=== PATIENT | female | born 1985 | race Two or more races ===

== ENCOUNTER 2024-11-20 19:10 | Emergency (ER) | payer BC, MEDICAID, SELFPAY ==
[2024-11-20 19:10] VITALS: BMI 24.7
[2024-11-20 19:52] VITALS: BP 106/73; PULSE 96; RESP 15; TEMP 37.5; O2SAT 100
--- NOTE | 2024-11-20 19:57 | XR_ITS ---
Examination: CT abdomen with intravenous contrast CT pelvis with intravenous contrast 2-D coronal reconstructions 2-D sagittal reconstructions Date and time of exam:November 20, 2024, 10 0 2:00 PM, comparison August 29, 2008 INDICATIONS: Right lower abdominal pain nausea vomiting diarrhea beginning 2 days ago. CTDI: vol (mGy) 3.37 DLP: (mGycm) 6047 Technique: Multiple axial sections of the abdomen and pelvis have been obtained. 64 slice high-resolution scanner used. 3 mm axial sections have been obtained, post intravenous injection 60 cc [id number] 2-D sagittal, coronal reconstructions obtained. Low dose protocols were performed. One or more of the following dose reduction techniques were used; automated exposure control, adjustment of the mA and/or KV according to patient size, use of iterative reconstruction technique. Findings: No focal liver or splenic lesions Absent gallbladder No pancreatic or adrenal mass No renal or ureteral calculi, no hydronephrosis No pericecal inflammatory change No bowel obstruction Anteverted uterus Complex thick-walled right ovarian cyst, 20 mm, axial image 177 No free fluid in the pelvis Bladder intact Osseous structures intact IMPRESSION: No renal or ureteral calculi, no hydronephrosis No CT findings of appendicitis or bowel obstruction 20 mm complex thick-walled right ovarian cyst, please see the pelvic sonogram report today
--- NOTE | 2024-11-20 19:57 | XR_ITS ---
Examination: Transvaginal ultrasound of the pelvis, complete Technique: Transvaginal sonographic images pelvis performed using castillo scale imaging Exam date and time: November 20, 20244 hours INDICATIONS: Right-sided pelvic pain beginning 2 days ago FINDINGS: Uterus 9.6 cm endometrial stripe 1.4 cm No uterine mass or intrauterine gestation Right ovary 4.0 cm arterial flow, cyst with internal echoes 17 x 17 x 17 mm Left ovary 3.2 cm arterial flow IMPRESSION: Complex cyst with internal echoes, 1.7 x 1.7 x 1.7 cm, differential would include hemorrhagic cyst, endometrioma, cystic ovarian tumor not excluded Recommend elective MRI pelvis follow-up pre and postcontrast.
--- NOTE | 2024-11-20 19:58 | PD.EDRME ---
Rapid Medical Screening Exam [facility] Arrival date/time: 11/20/24 19:10 39F with history of cholecystectomy, gastric bypass, hernia repair, and tubal ligation presents to ED with several days of RLQ, N/V, and non-bloody diarrhea. Patient denies dysuria/hematuria. Chief Complaint: Abdominal Pain Vital signs: Vital Signs Temperature 99.5 F 11/20/24 19:52 Pulse Rate 96 11/20/24 19:52 Respiratory Rate 15 11/20/24 19:52 Blood Pressure 106/73 11/20/24 19:52 Pulse Oximetry (%) 100 11/20/24 19:52 Oxygen Delivery Method Room Air 11/20/24 19:52
[2024-11-20 20:39] LABS: Lactate (Lactic Acid) 0.8 mMol/L (0.4-2.0)
[2024-11-20 20:40] LABS: Basophils # (Auto) 0.0 Thou/mm3 (0.0-0.2); Basophils % (Auto) 0 % (0-2.5); Eosinophils # (Auto) 0.2 Thou/mm3 (0.0-0.5); Eosinophils % (Auto) 2 % (0-10); Hematocrit 38.8 % (36.0-46.0); Hemoglobin 12.5 g/dL (12.0-16.0); Immature Granulocytes Auto 0.01 Thou/mm3 (0.00-0.00); Lymphocytes # (Auto) 3.3 Thou/mm3 (1.0-4.8); Lymphocytes % (Auto) 44 % (10-50); Mean Corpuscular HGB Conc 32.2 g/dl (31.0-37.0); Mean Corpuscular Hemoglobin 27.8 pg (25.0-35.0); Mean Corpuscular Volume 86 fL (80-100); Monocytes # (Auto) 0.6 Thou/mm3 (0.0-0.8); Monocytes % (Auto) 8 % (0-12); Neutrophils # (Auto) 3.4 Thou/mm3 (1.8-7.7); Neutrophils % (Auto) 45 % (37-80); Nucleated Red Blood Cell # 0.00 Thou/mm3 (0.00-0.00); Nucleated Red Blood Cell % 0 /100 WBC (0); Platelet Count 255 Thou/mm3 (140-440); RDW Standard Deviation 41.9 fL (36.4-46.3); Red Blood Count 4.50 Miln/mm3 (4.00-5.20); White Blood Count 7.6 Thou/mm3 (3.6-11.0)
[2024-11-20 21:02] LABS: Alanine Aminotransferase 14 U/L (10-49); Albumin, Serum 4.4 gm/dL (3.5-5.0); Albumin/Globulin Ratio 1.5 (1.2-2.2); Alkaline Phosphatase 65 U/L (46-116); Anion Gap 8 (7-16); Aspartate Amino Transferase 18 U/L (0-34); BUN/Creatinine Ratio 15 Ratio (12-20); Bilirubin,Total 0.4 mg/dL (0.3-1.2); Blood Urea Nitrogen 9 mg/dL (9-23); Calcium 9.4 mg/dL (8.3-10.6); Calcium (Corrected) 9.4 mg/dL (8.5-10.1); Carbon Dioxide 26.9 mMol/L (20.0-31.0); Chloride 105 mMol/L (98-107); Creatinine (Component) 0.6 mg/dL (0.6-1.3); Estimated Creatinine Clearance 105.3 mL/min (>60); Globulin 2.9 gm/dL (2.3-3.5); Glucose 87 mg/dL (74-106); Osmolality,Calculated 277 (275-295); Potassium 4.0 mMol/L (3.4-5.1); Sodium 140 mMol/L (136-145); Total Protein 7.3 gm/dL (5.7-8.2); eGFR > 60 See Note
[2024-11-20 21:03] LABS: Collection Type, Urine Clean Catch
[2024-11-20 21:13] LABS: Lipase 38 U/L (12-53); Procalcitonin < 0.04 ng/ml (0.0-0.49)
[2024-11-20 21:19] LABS: Amphetamine/Methamp Scrn,U Negative (Negative); Barbiturate Screen,Urine Negative (Negative); Benzodiazepines Screen,Urine Negative (Negative); Benzoylecgonine Screen, Ur Negative (Negative); Fentanyl Screen,Urine Negative (Negative); Opiate Screen,Urine Negative (Negative); THC Screen,Urine Negative (Negative)
[2024-11-20 21:42] LABS: Bilirubin,Urine Negative (Negative); Blood,Urine Negative (Negative); Clarity,Urine Clear (Clear/Hazy); Color,Urine Yellow (Lt Yel-Yel); Culture Indicated,Urine Not Indicated; Glucose, Urine Negative (Negative); Ketones,Urine Negative (Negative); Leukocyte Esterase,Urine Negative (Negative); Nitrite,Urine Negative (Negative); PH,Urine 6.0 (5.0-7.0); Protein,Urine Trace (Neg - Trace); RBC,Urine 4 /hpf (0-3); Specific Gravity,Urine 1.035 (1.001-1.035); Squamous Epithelial Cell,Urine 9 /hpf (0-5); Urobilinogen,Urine 2.0 mg/dL (0.0-1.0); WBC,Urine 2 /hpf (0-5)
--- NOTE | 2024-11-20 23:09 | PD.EDABDPN ---
ED Abdominal Pain RME/HPI General Chief Complaint: Abdominal Pain Stated complaint: RLQ PAIN, N/V/DIARRHEA X 2DAYS Time seen by provider: 11/20/24 23:09 Arrival date/time: 11/20/24 19:10 39F with history of cholecystectomy, gastric bypass, hernia repair, and tubal ligation presents to ED with several days of RLQ, N/V, and non-bloody diarrhea. Patient denies dysuria/hematuria. Limitations: no limitations RME / HPI RME / HPI narrative: 11/20/24 19:10 39F with history of cholecystectomy, gastric bypass, hernia repair, and tubal ligation presents to ED with several days of RLQ, N/V, and non-bloody diarrhea. Patient denies dysuria/hematuria. Related Data Home Medications ?Medication ?Instructions ?Recorded ?Confirmed albuterol sulfate 90 mcg/actuation 1 puff inhalation Q6H PRN 02/06/19 02/06/19 aerosol inhaler Respiratory Distress loratadine 10 mg capsule 10 mg PO QDAY 02/06/19 02/06/19 Previous Rx's ?Medication ?Instructions ?Recorded acetaminophen 500 mg capsule 1,000 mg (2 x 500 mg) PO Q8HR PRN 02/06/19 pain #60 caps acetaminophen 500 mg capsule 1,000 mg (2 x 500 mg) PO Q8HR PRN 09/03/21 pain #60 caps ibuprofen 800 mg tablet 800 mg PO TID PRN pain #30 tabs 09/03/21 promethazine-DM 6.25 mg-15 mg/5 mL 5 ml PO Q6H PRN cough #473 mL 09/03/21 oral syrup ondansetron 4 mg disintegrating 4 mg PO Q8H PRN nausea and 04/26/23 tablet vomiting #15 tabs Allergies Allergy/AdvReac Type Severity Reaction Status Date / Time No Known Allergies Allergy Verified 04/26/23 09:26 Review of Systems Review of Systems Systems Reviewed: All systems reviewed, normal except as documented Constitutional Constitutional: Reports system reviewed and no additional complaints, except as documented, Denies fever(s) and Denies headache(s) ENT Ears, Nose, Mouth, and Throat: Denies disequilibrium and Denies headache(s) Cardiovascular Cardiovascular: Reports system reviewed and no additional complaints, except as documented, Denies chest pain and Denies dyspnea Respiratory Respiratory: Reports system reviewed and no additional complaints, except as documented, Denies cough and Denies dyspnea Gastrointestinal Gastrointestinal: Reports system reviewed and no additional complaints, except as documented, Reports as per HPI, Denies abdominal pain, Reports nausea and Reports vomiting Genitourinary Genitourinary: Reports as per HPI and Reports pelvic pain Neurologic Neurologic: Reports system reviewed and no additional complaints, except as documented, Denies confusion, Denies disequilibrium and Denies headache(s) Psychiatric Psychiatric: Denies confusion Past Medical History Past Medical History NEUROLOGIC: Negative Neurological Disorders or Seizures CARDIAC: Negative Cardiac Disorders or Congestive Heart Failure RESPIRATORY: Negative Chronic Obstructive Pulmonary Disease (COPD) or Asthma GASTROINTESTINAL: Positive Gall Bladder Disease; Negative Gastrointestinal Disorders, Hepatitis, Colorectal Cancer or Gastroesophageal Reflux Disease GENITOURINARY: Negative Genitourinary Disorders, Renal Disease or Prostate Cancer REPRODUCTIVE: Positive Previous Pregnancies; Negative Breast Cancer or Testicular Cancer MUSCULOSKELETAL: Negative Musculoskeletal Disorders, Bone Cancer or Carpal Tunnel Syndrome ENDOCRINE: Negative Endocrine Disorders, Diabetes Mellitus Type 1 or Diabetes Mellitus Type 2 HEMATOLOGIC: Negative Blood Disorders or Sickle Cell Disease PSYCHO/SOCIAL: Positive Anxiety OTHER HISTORY: Negative Hospitalization, Autoimmune Disease, Down Syndrome, Developmental Delay, Shingles, Falls, Blood Transfusions, Blood Transfusion Reaction, Anesthesia Reactions, Organ Transplant, Chemotherapy, Radiation Therapy, Hyperbaric Therapy, MRSA, VRSA, Vancomycin-Resistant Enterococci, Human Immunodeficiency Virus (HIV), Chicken Pox, Measles, Mumps, Rubella (English Measles), Pertussis, Clostridium Difficile, Breast Cancer, Cervical Cancer, Colorectal Cancer, Lung Cancer, Ovarian Cancer, Prostate Cancer or Testicular Cancer Family History FAMILY HISTORY: Negative Family Psychiatric Problems, Family Respiratory Disorders, Family Cardiac Disorders, Family Gastrointestinal Problems, Family Cancer, Family Surgery or Family Anesthesia Reaction Surgical History SURGICAL: Negative Nephrectomy, Transurethral Resection, Joint Replacement, Amputation, Open Reduction Internal Fixation, Arthroscopy, Neurologic Surgery, Brain Shunt, Mastectomy, Lumpectomy, Hysterectomy, Section, Vasectomy or Organ Transplant Social History SMOKING STATUS: Never smoker ED Exam General Limitations: Present no limitations General appearance: Present alert and in no apparent distress Head Head exam: Present atraumatic Eye Eye exam: Present normal appearance, PERRL and EOMI ENT ENT exam: Present normal exam, normal oropharynx and mucous membranes moist Neck Neck exam: Present normal inspection, full ROM and trachea midline Chest Chest inspection: Present normal inspection and symmetric chest wall rise Respiratory Respiratory exam: Present normal lung sounds bilaterally Cardiovascular Cardiovascular exam: Present regular rate, normal rhythm and normal heart sounds Abdominal Exam Abdominal exam: Present soft and normal bowel sounds Abdominal tenderness: Present RLQ and mild Extremities Exam Extremities exam: Present normal inspection and full ROM Back Exam Back exam: Present normal inspection and full ROM Neurological Exam Neurological exam: Present alert, oriented X3 and CN II-XII intact Psychiatric Psychiatric exam: Present normal affect and normal mood Skin Skin exam: Present warm, dry, intact and normal color Course Quality Measures none Orders Category Date Time Status CT Screening NOW Care 11/20/24 19:58 Completed Insert IV NOW Care 11/20/24 19:[address] abdomen pelvis w con Stat Exams 11/20/24 19:57 Completed US transvaginal Stat Exams 11/20/24 19:57 Completed CBC Stat Lab 11/20/24 20:28 Completed CMP [Comprehensive Metabolic Panel] Stat Lab 11/20/24 20:28 Completed Drug Screen,Urine Stat Lab 11/20/24 20:42 Completed Lactate (Lactic Acid) Stat Lab 11/20/24 20:28 Completed Lipase Stat Lab 11/20/24 20:28 Completed Procalcitonin Stat Lab 11/20/24 20:28 Completed Urinalysis, C/S if Indicated Stat Lab 11/20/24 20:42 Completed Vital Signs Vital signs: Vital Signs Temperature 99.5 F 11/20/24 19:52 Pulse Rate 96 11/20/24 19:52 Respiratory Rate 15 11/20/24 19:52 Blood Pressure 106/73 11/20/24 19:52 Pulse Oximetry (%) 100 11/20/24 19:52 Oxygen Delivery Method Room Air 11/20/24 19:52 O2 at 100% on RA and WNLs Abdominal Pain MDM MDM Narrative MDM Narrative:: 39F with history of cholecystectomy, gastric bypass, hernia repair, and tubal ligation presents to ED with several days of RLQ, N/V, and non-bloody diarrhea. Patient denies dysuria/hematuria. Physical exam reveals mild RLQ/pelvic tenderness. Patient is afebrile, calm, and alert. CT reveals ovarian cyst. US reveals complex ovarian cyst w/ possible differential of cancer. No leukocytosis. Procal/lactate normal. CMP unremarkable. UA contaminated, but no gross UTI. Patient will come back during day time for MRI, likely on Thursday, since she has some work training tomorrow. Patient declines pain meds. Patient data External records reviewed:: [facility] previous records Clinical information provided by:: patient Social determinants that could affect healthcare access:: none Patient has the following chronic illnesses:: cholecystectomy, gastric bypass, hernia repair, and tubal ligation How is presenting disease/condition affected by chronic disease/condition?: uneffected by Evaluation data The following diagnostics were reviewed and interpreted by me:: lab results and radiology exam(s) Lab and/or radiology exams considered but not ordered:: ordered Interpretation Summary: above Medications / Prescriptions Medications or Prescriptions considered but not ordered:: not ordered Medication administrations:: n/a Consultations Consultation(s) initiated? (list below): No Diagnosis Differential diagnosis abdominal pain: abdominal pain, acute appendicitis, calculus of kidney, constipation, diverticulitis, endometriosis, gastroenteritis, pancreatitis, small bowel obstruction and other (ovarian mass) Most likely diagnosis given after review of the tests above:: ovarian mass Admission Indicated Admission indicated?: not indicated Admission Request Was there a request for admission?: No Disposition Plan Disposition Plan: Discharge Discharge Attestation Discharge Attestation: The patient and all family members were given an opportunity to ask questions and understood the discharge instructions. Discharge instructions specifically effects, indications for sooner follow up or return to the emergency department, and the expected course of current diagnosis. Patient condition: Stable Discharge Plan Plan Patient Disposition: HOME (Self Care) Discharge Disposition comment: Stable Prescriptions/Referrals Prescriptions/Med Rec: No Action ibuprofen 800 mg tablet 800 mg PO TID PRN (Reason: pain) Qty: 30 0RF acetaminophen 500 mg capsule 1,000 mg PO Q8HR PRN (Reason: pain) Qty: 60 0RF promethazine-DM 6.25-15 mg/5 mL syrup 5 ml PO Q6H PRN (Reason: cough) Qty: 473 0RF albuterol sulfate 90 mcg/actuation Hfa Aerosol Inhaler 1 puff INHALATION Q6H PRN (Reason: Respiratory Distress) loratadine 10 mg Capsule 10 mg PO QDAY acetaminophen 500 mg capsule 1,000 mg PO Q8HR PRN (Reason: pain) Qty: 60 0RF ondansetron 4 mg tablet,disintegrating 4 mg PO Q8H PRN (Reason: nausea and vomiting) Qty: 15 0RF Referrals: Alcon Smiley [Primary Care Provider] - In 1 week Problem List Clinical Impression: Ovarian mass Patient/Caregiver Discharge Instructions Additional Instructions: Please follow-up with PCP/BGYN within 24-48 hours and return immediately if symptoms worsen. Return in AM time for MRI. 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 Cotton
[2024-11-20 23:32] VITALS: BP 112/72; PULSE 72; RESP 16; TEMP 36.7; O2SAT 98
== END 2024-11-20 23:39 | disposition home or self-care (01) ==
PROVIDERS: Physician Assistant; Emergency Provider Emergency Medicine; PCP Family Medicine
DX: N83.9 Noninflammatory disorder of ovary, fallopian tube and broad ligament, unspecified (principal); N83.291 Other ovarian cyst, right side; R19.7 Diarrhea, unspecified
CPT/HCPCS: 36415; 74177; 76830; 80053; 80307; 81001; 83605; 83690; 84145; 85025; 99284; A4649; Q9967

== ENCOUNTER 2024-11-26 08:05 | Emergency (ER) | payer BC, MEDICAID, SELFPAY ==
--- NOTE | 2024-11-26 | XR_ITS ---
Examination: MRI pelvis with intravenous contrast. MRI pelvis without intravenous contrast. Date and time of exam: November 26, 2024 0908 hrs. Indications: Worsening pelvic abdominal pain beginning 2 months ago, 20 mm thick-walled right ovarian cyst on pelvic sonogram report today Technique: Multiple axial, sagittal and coronal sections of the pelvis obtained. Transverse images, TR 6020, TE 107. T1 weighted transverse images, TR 582, TE 9.5. T2-weighted sagittal images, TR 4000, TE 105. T2-weighted sagittal images, TR 4000, TE 5. Coronal images, TR 4210, TE 107. Axial and coronal images are obtained post 12 cc intravenous injection, gadolinium. Findings: Uterus 9.5 x 3.2 x 3.5 cm. Endometrial stripe 15 mm. No enhancing uterine mass. Benign pelvic cyst Right ovary 3.8 cm with multiple cysts, the largest 17 mm without enhancement on the postcontrast images Left ovary 3.2 cm follicular cysts, the largest 8 mm Impression: Negative for uterine mass. 17 mm right mammogram probable hemorrhagic cyst, no solid enhancing ovarian tumor noted Recommend 6 month right pelvic sonogram follow-up
[2024-11-26 08:06] VITALS: BMI 26.2
[2024-11-26 08:19] VITALS: BP 107/72; PULSE 70; RESP 18; TEMP 36.6; O2SAT 99
--- NOTE | 2024-11-26 08:27 | PD.EDRME ---
Rapid Medical Screening Exam [facility] Arrival date/time: 11/26/24 08:05 39-year-old female with no known medical history presents to the emergency room with a chief complaint of right lower quadrant abdominal pain. Patient was seen here on 11/20/2024 and was told she has an ovarian mass on her ultrasound. Patient was instructed to return the next day in the morning for an MRI but due to work complications she returns today I have greeted and performed a focused initial assessment of this patient. A comprehensive ED assessment and evaluation of the patient, analysis of all test results, and completion of the medical decision making process will be conducted by additional ED providers. Chief Complaint: Abdominal Pain Time Seen by Provider: 11/26/24 08:14 Vital signs: Vital Signs Temperature 98 F 11/26/24 08:19 Pulse Rate 70 11/26/24 08:19 Respiratory Rate 18 11/26/24 08:19 Blood Pressure 107/72 11/26/24 08:19 Pulse Oximetry (%) 99 11/26/24 08:19 Oxygen Delivery Method Room Air 11/26/24 08:19 Vital signs reviewed by provider: Yes
[2024-11-26 09:28] LABS: Alanine Aminotransferase 10 U/L (10-49); Albumin, Serum 4.1 gm/dL (3.5-5.0); Albumin/Globulin Ratio 1.6 (1.2-2.2); Alkaline Phosphatase 61 U/L (46-116); Anion Gap 9 (7-16); Aspartate Amino Transferase 16 U/L (0-34); BUN/Creatinine Ratio 16 Ratio (12-20); Bilirubin,Total 0.6 mg/dL (0.3-1.2); Blood Urea Nitrogen 8 mg/dL (9-23); Calcium 9.4 mg/dL (8.3-10.6); Calcium (Corrected) 9.4 mg/dL (8.5-10.1); Carbon Dioxide 27.1 mMol/L (20.0-31.0); Chloride 105 mMol/L (98-107); Creatinine (Component) 0.5 mg/dL (0.6-1.3); Estimated Creatinine Clearance 129.8 mL/min (>60); Globulin 2.5 gm/dL (2.3-3.5); Glucose 86 mg/dL (74-106); Osmolality,Calculated 278 (275-295); Potassium 3.8 mMol/L (3.4-5.1); Sodium 141 mMol/L (136-145); Total Protein 6.6 gm/dL (5.7-8.2); eGFR > 60 See Note
[2024-11-26 09:51] LABS: Basophils # (Auto) 0.0 Thou/mm3 (0.0-0.2); Basophils % (Auto) 0 % (0-2.5); Eosinophils # (Auto) 0.2 Thou/mm3 (0.0-0.5); Eosinophils % (Auto) 3 % (0-10); Hematocrit 38.5 % (36.0-46.0); Hemoglobin 12.1 g/dL (12.0-16.0); Immature Granulocytes Auto 0.01 Thou/mm3 (0.00-0.00); Lymphocytes # (Auto) 2.3 Thou/mm3 (1.0-4.8); Lymphocytes % (Auto) 46 % (10-50); Mean Corpuscular HGB Conc 31.4 g/dl (31.0-37.0); Mean Corpuscular Hemoglobin 26.9 pg (25.0-35.0); Mean Corpuscular Volume 86 fL (80-100); Monocytes # (Auto) 0.4 Thou/mm3 (0.0-0.8); Monocytes % (Auto) 7 % (0-12); Neutrophils # (Auto) 2.2 Thou/mm3 (1.8-7.7); Neutrophils % (Auto) 44 % (37-80); Nucleated Red Blood Cell # 0.00 Thou/mm3 (0.00-0.00); Nucleated Red Blood Cell % 0 /100 WBC (0); Platelet Count 265 Thou/mm3 (140-440); RDW Standard Deviation 41.6 fL (36.4-46.3); Red Blood Count 4.49 Miln/mm3 (4.00-5.20); White Blood Count 5.0 Thou/mm3 (3.6-11.0)
[2024-11-26 09:56] LABS: INR 1.0 (0.9-1.3); Partial Thromboplastin Time 28.3 Seconds (22.0-36.0); Prothrombin Time 10.9 Seconds (9.0-12.2)
[2024-11-26 10:56] VITALS: BP 100/62; PULSE 65; RESP 18; TEMP 36.8; O2SAT 98
[2024-11-26 11:05] LABS: Collection Type, Urine Clean Catch; WBC,Urine 0 /hpf (0-5)
[2024-11-26 11:23] LABS: Bilirubin,Urine Negative (Negative); Blood,Urine 1+ (Negative); Clarity,Urine Clear (Clear/Hazy); Color,Urine Colorless (Lt Yel-Yel); Culture Indicated,Urine Not Indicated; Glucose, Urine Negative (Negative); Ketones,Urine Negative (Negative); Leukocyte Esterase,Urine Negative (Negative); Nitrite,Urine Negative (Negative); PH,Urine 7.5 (5.0-7.0); Protein,Urine Negative (Neg - Trace); RBC,Urine 13 /hpf (0-3); Specific Gravity,Urine 1.010 (1.001-1.035); Squamous Epithelial Cell,Urine 1 /hpf (0-5); Urobilinogen,Urine Negative mg/dL (0.0-1.0)
[2024-11-26 11:24] LABS: HCG Qualitative,Urine Negative
[2024-11-26 13:14] VITALS: BP 96/60; PULSE 71; RESP 18; TEMP 36.7; O2SAT 99
--- NOTE | 2024-11-26 14:00 | PC.NURSE ---
GAVE PT TURKEY SANDWICH AND WATER.
--- NOTE | 2024-11-26 14:28 | PD.EDABDPN ---
ED Abdominal Pain RME/HPI General Chief Complaint: Abdominal Pain Stated complaint: NEEDS MRI FOR MASS ON OVARIES Time seen by provider: 11/26/24 08:14 Arrival date/time: 11/26/24 08:05 RME / HPI RME / HPI narrative: 11/26/24 08:05 39-year-old female with no known medical history presents to the emergency room with a chief complaint of right lower quadrant abdominal pain. Patient was seen here on 11/20/2024 and was told she has an ovarian mass on her ultrasound. Patient was instructed to return the next day in the morning for an MRI but due to work complications she returns today I have greeted and performed a focused initial assessment of this patient. A comprehensive ED assessment and evaluation of the patient, analysis of all test results, and completion of the medical decision making process will be conducted by additional ED providers. DR. HERNANDEZ MAIN ED EVALUATION 39 year old female with history of gastric bypass and tubal ligation otherwise no other chronic medical history reported presents to the ED for evaluation of abdominal pain today. Reports she was evaluated here on 11/20/2024 for similar abdominal pain and studies at that time showed a complex ovarian cyst and was advised to return today for MRI. Reports her pain remains unchanged. No new symptoms reported. Denies fevers, chills, vaginal bleeding or urinary symptoms. Related Data Home Medications ?Medication ?Instructions ?Recorded ?Confirmed albuterol sulfate 90 mcg/actuation 1 puff inhalation Q6H PRN 02/06/19 02/06/19 aerosol inhaler Respiratory Distress loratadine 10 mg capsule 10 mg PO QDAY 02/06/19 02/06/19 Previous Rx's ?Medication ?Instructions ?Recorded acetaminophen 500 mg capsule 1,000 mg (2 x 500 mg) PO Q8HR PRN 02/06/19 pain #60 caps acetaminophen 500 mg capsule 1,000 mg (2 x 500 mg) PO Q8HR PRN 09/03/21 pain #60 caps ibuprofen 800 mg tablet 800 mg PO TID PRN pain #30 tabs 09/03/21 promethazine-DM 6.25 mg-15 mg/5 mL 5 ml PO Q6H PRN cough #473 mL 09/03/21 oral syrup ondansetron 4 mg disintegrating 4 mg PO Q8H PRN nausea and 04/26/23 tablet vomiting #15 tabs Allergies Allergy/AdvReac Type Severity Reaction Status Date / Time No Known Allergies Allergy Verified 11/26/24 08:08 Review of Systems Review of Systems Systems Reviewed: All systems reviewed, normal except as documented Past Medical History Past Medical History GASTROINTESTINAL: Positive Gall Bladder Disease REPRODUCTIVE: Positive Previous Pregnancies PSYCHO/SOCIAL: Positive Anxiety Family History FAMILY HISTORY: Negative Family Psychiatric Problems, Family Respiratory Disorders, Family Cardiac Disorders, Family Gastrointestinal Problems, Family Cancer, Family Surgery or Family Anesthesia Reaction Social History SMOKING STATUS: Never smoker ED Exam Narrative Physical exam: GENERAL APPEARANCE:? alert and oriented x 4, well-developed, well-nourished, no acute distress HEENT: normocephalic, atraumatic NECK: supple LUNGS: no respiratory distress, normal effort HEART: good peripheral perfusion ABDOMEN: non distended EXTREMITIES:? atraumatic NEUROLOGIC: awake; alert and oriented x4; cranial nerves II-XII grossly intact PSYCHIATRIC:? appropriate mood and affect SKIN: warm, dry, normal color; no rashes Course Quality Measures none Orders Category Date Time Status MRI Screening NOW Care 11/26/24 08:26 Active MR pelvis wo/w con Stat Exams 11/26/24 Completed CBC Stat Lab 11/26/24 09:00 Completed CMP [Comprehensive Metabolic Panel] Stat Lab 11/26/24 09:00 Completed HCG Qualitative,Urine Stat Lab 11/26/24 11:00 Completed PT [Prothrombin Time with INR] Stat Lab 11/26/24 09:00 Completed PTT [Partial Thromboplastin Time] Stat Lab 11/26/24 09:00 Completed UA, C/S IF [Urinalysis, C/S if Indicated] Stat Lab 11/26/24 11:00 Completed Vital Signs Vital signs: Vital Signs Temperature 98 F 11/26/24 08:19 Pulse Rate 70 11/26/24 08:19 Respiratory Rate 18 11/26/24 08:19 Blood Pressure 107/72 11/26/24 08:19 Pulse Oximetry (%) 99 11/26/24 08:19 Oxygen Delivery Method Room Air 11/26/24 08:19 Pulse ox is 99% on room air which is adequate. Abdominal Pain MDM MDM Narrative MDM Narrative:: IRadha, sagrario scribing for and in the presence of Dr. Hernandez. Patient remains clinically stable throughout the emergency department visit. We reviewed all the results, analysis, and treatment plans. Patient is amenable to discharge. Strict return precautions were outlined. Patient was discharged in stable condition. Patient data External records reviewed:: [facility] previous records (I reviewed ED visit on ) Clinical information provided by:: patient Social determinants that could affect healthcare access:: none Patient has the following chronic illnesses:: tubal ligation, gastric bypass How is presenting disease/condition affected by chronic disease/condition?: uneffected by Evaluation data The following diagnostics were reviewed and interpreted by me:: lab results and radiology exam(s) Lab and/or radiology exams considered but not ordered:: None Interpretation Summary: Ordering Physician: Hitesh Snow Date of Service: 11/26/24 Procedure(s): MR pelvis wo/w con Accession Number(s): [id number] cc: Hitesh Snow; Kaylee Cook (ARIACHL); Jaswant Christina MD~ Examination: MRI pelvis with intravenous contrast. MRI pelvis without intravenous contrast. Date and time of exam: November 26, 2024 0908 hrs. Indications: Worsening pelvic abdominal pain beginning 2 months ago, 20 mm thick-walled right ovarian cyst on pelvic sonogram report today Technique: Multiple axial, sagittal and coronal sections of the pelvis obtained. Transverse images, TR 6020, TE 107. T1 weighted transverse images, TR 582, TE 9.5. T2-weighted sagittal images, TR 4000, TE 105. T2-weighted sagittal images, TR 4000, TE 5. Coronal images, TR 4210, TE 107. Axial and coronal images are obtained post 12 cc intravenous injection, gadolinium. Findings: Uterus 9.5 x 3.2 x 3.5 cm. Endometrial stripe 15 mm. No enhancing uterine mass. Benign pelvic cyst Right ovary 3.8 cm with multiple cysts, the largest 17 mm without enhancement on the postcontrast images Left ovary 3.2 cm follicular cysts, the largest 8 mm Impression: Negative for uterine mass. 17 mm right mammogram probable hemorrhagic cyst, no solid enhancing ovarian tumor noted Recommend 6 month right pelvic sonogram follow-up Dictated By: Jaswant Christina MD Signed By: <Electronically signed by Jaswant Christina MD in OV> 11/26/24 1020 Medications / Prescriptions Medications or Prescriptions considered but not ordered:: None Medication administrations:: None Consultations Consultation(s) initiated? (list below): No Diagnosis Differential diagnosis abdominal pain: abdominal pain and other (ovarian cyst, ruptured ovarian cyst ) Most likely diagnosis given after review of the tests above:: Ovarian cyst Admission Indicated Admission indicated?: not indicated Admission Request Was there a request for admission?: No Disposition Plan Disposition Plan: Discharge Discharge Attestation Discharge Attestation: The patient and all family members were given an opportunity to ask questions and understood the discharge instructions. Discharge instructions specifically effects, indications for sooner follow up or return to the emergency department, and the expected course of current diagnosis. Patient condition: Stable Discharge Plan Plan Patient Disposition: HOME (Self Care) Prescriptions/Referrals Prescriptions/Med Rec: No Action ibuprofen 800 mg tablet 800 mg PO TID PRN (Reason: pain) Qty: 30 0RF acetaminophen 500 mg capsule 1,000 mg PO Q8HR PRN (Reason: pain) Qty: 60 0RF promethazine-DM 6.25-15 mg/5 mL syrup 5 ml PO Q6H PRN (Reason: cough) Qty: 473 0RF albuterol sulfate 90 mcg/actuation Hfa Aerosol Inhaler 1 puff INHALATION Q6H PRN (Reason: Respiratory Distress) loratadine 10 mg Capsule 10 mg PO QDAY acetaminophen 500 mg capsule 1,000 mg PO Q8HR PRN (Reason: pain) Qty: 60 0RF ondansetron 4 mg tablet,disintegrating 4 mg PO Q8H PRN (Reason: nausea and vomiting) Qty: 15 0RF Referrals: Kaylee Cook FNP (ARIACHL) [Primary Care Provider] - In 1 week Problem List Clinical Impression: Ovarian cyst Patient/Caregiver Discharge Instructions Education Materials: Understanding Ovarian Cysts, ED Ovarian Cyst Print Language: Guamanian Stand Alone Forms: [employer] Award Info., Patient Portal Info Letter
[2024-11-26 14:37] VITALS: BP 104/64; PULSE 73; RESP 16; TEMP 37; O2SAT 96
== END 2024-11-26 14:45 | disposition home or self-care (01) ==
PROVIDERS: Nurse Practitioner Family; Emergency Provider Emergency Medicine; PCP Nurse Practitioner Primary Care
DX: N83.02 Follicular cyst of left ovary (principal); N83.201 Unspecified ovarian cyst, right side
CPT/HCPCS: 36415; 72197; 80053; 81001; 81025; 85025; 85610; 85730; 99284; A9577

== ENCOUNTER 2025-03-12 09:13 | Emergency (ER) | payer BC, MEDICAID, SELFPAY ==
[2025-03-12 09:30] VITALS: BP 111/69; PULSE 83; RESP 18; TEMP 36.8; O2SAT 97; BMI 23.9
--- NOTE | 2025-03-12 09:35 | XR_ITS ---
Examination: Pelvic ultrasound, transabdominal, complete Technique: Transabdominal ultrasound of the pelvis performed using grayscale imaging Date and time of exam: March 12, 2025, 1052 hours INDICATIONS: Mid pelvic pain beginning 4 days ago. FINDINGS: Uterus 7.4 cm endometrial stripe 0.1 cm, no uterine mass or intrauterine gestation Right ovary 2.8 cm arterial flow Left ovary 4.0 cm arterial flow, 1.7 x 1.2 x 1.7 cm simple cyst IMPRESSION: Left ovarian simple cyst 17 x 12 x 17 mm
--- NOTE | 2025-03-12 09:36 | EDRME_ITS ---
Rapid Medical Screening Exam RME Arrival date/time: 03/12/25 09:13 39-year-old female with no known medical history presents to the emergency room with a chief complaint of lower suprapubic abdominal pain, nausea, dizziness x 3 days I have greeted and performed a focused initial assessment of this patient. A com prehensive ED assessment and evaluation of the patient, analysis of all test results, and completion of the medical decision making process will be conducted by additional ED providers. Chief Complaint: Abdominal Pain Time Seen by Provider: 03/12/25 09:14 Vital signs: Vital Signs Temperature 98.3 F 03/12/25 09:30 Pulse Rate 83 03/12/25 09:30 Respiratory Rate 18 03/12/25 09:30 Blood Pressure 111/69 03/12/25 09:30 Pulse Oximetry (%) 97 03/12/25 09:30 Oxygen Delivery Method Room Air 03/12/25 09:30 Vital signs reviewed by provider: Yes Exam: Tenderness under the umbilicus with palpation GCS of 15 alert oriented x 3 Clinical Impression: Abdominal pain/UTI/electrolyte imbalance
[2025-03-12 09:50] LABS: Basophils # (Auto) 0.0 Thou/mm3 (0.0-0.2); Basophils % (Auto) 0 % (0-2.5); Eosinophils # (Auto) 0.1 Thou/mm3 (0.0-0.5); Eosinophils % (Auto) 2 % (0-10); Hematocrit 40.7 % (36.0-46.0); Hemoglobin 12.8 g/dL (12.0-16.0); Immature Granulocytes Auto 0.01 Thou/mm3 (0.00-0.00); Lymphocytes # (Auto) 3.1 Thou/mm3 (1.0-4.8); Lymphocytes % (Auto) 60 % (10-50); Mean Corpuscular HGB Conc 31.4 g/dl (31.0-37.0); Mean Corpuscular Hemoglobin 26.1 pg (25.0-35.0); Mean Corpuscular Volume 83 fL (80-100); Monocytes # (Auto) 0.4 Thou/mm3 (0.0-0.8); Monocytes % (Auto) 8 % (0-12); Neutrophils # (Auto) 1.6 Thou/mm3 (1.8-7.7); Neutrophils % (Auto) 30 % (37-80); Nucleated Red Blood Cell # 0.00 Thou/mm3 (0.00-0.00); Nucleated Red Blood Cell % 0 /100 WBC (0); Platelet Count 250 Thou/mm3 (140-440); RDW Standard Deviation 40.8 fL (36.4-46.3); Red Blood Count 4.91 Miln/mm3 (4.00-5.20); White Blood Count 5.2 Thou/mm3 (3.6-11.0)
[2025-03-12 10:02] LABS: Collection Type, Urine Clean Catch
[2025-03-12 10:07] LABS: Bilirubin,Urine Negative (Negative); Blood,Urine Negative (Negative); Color,Urine Yellow (Lt Yel-Yel); Glucose, Urine Negative (Negative); Hyaline Casts,Urine < 1 /hpf (0-1); Ketones,Urine Negative (Negative); Leukocyte Esterase,Urine Negative (Negative); Nitrite,Urine Negative (Negative); PH,Urine 7.5 (5.0-7.0); Protein,Urine Trace (Neg - Trace); RBC,Urine 3 /hpf (0-3); Specific Gravity,Urine 1.020 (1.001-1.035); Squamous Epithelial Cell,Urine 15 /hpf (0-5); Urobilinogen,Urine 2.0 mg/dL (0.0-1.0); WBC,Urine 1 /hpf (0-5)
[2025-03-12 10:08] LABS: HCG Qualitative,Urine Negative
[2025-03-12 10:09] LABS: Alanine Aminotransferase 31 U/L (10-49); Albumin, Serum 4.9 gm/dL (3.5-5.0); Albumin/Globulin Ratio 1.7 (1.2-2.2); Alkaline Phosphatase 75 U/L (46-116); Anion Gap 7 (7-16); Aspartate Amino Transferase 33 U/L (0-34); BUN/Creatinine Ratio 12 Ratio (12-20); Bilirubin,Total 0.8 mg/dL (0.3-1.2); Blood Urea Nitrogen 7 mg/dL (9-23); Calcium 9.5 mg/dL (8.3-10.6); Calcium (Corrected) 9.5 mg/dL (8.5-10.1); Carbon Dioxide 30.3 mMol/L (20.0-31.0); Chloride 104 mMol/L (98-107); Creatinine (Component) 0.6 mg/dL (0.6-1.3); Estimated Creatinine Clearance 105.2 mL/min (>60); Globulin 2.9 gm/dL (2.3-3.5); Glucose 92 mg/dL (74-106); Lipase 36 U/L (12-53); Osmolality,Calculated 279 (275-295); Potassium 3.9 mMol/L (3.4-5.1); Sodium 141 mMol/L (136-145); Total Protein 7.8 gm/dL (5.7-8.2); eGFR > 60 See Note
[2025-03-12 10:36] LABS: Clarity,Urine Hazy (Clear/Hazy)
--- NOTE | 2025-03-12 11:47 | XR_ITS ---
Examination: CT abdomen and pelvis without contrast. Coronal 3-D reconstructions. Sagittal 2-D reconstructions. Date and time of exam: March 12, 2025, 12:21 p.m., comparison November 20, 2024 INDICATIONS: Generalized abdominal pain 5 days CTDI: vol (mGy): 6.14 DLP: (mGycm): 326 Technique: Axial images of the abdomen have been obtained, 3 mm slice thickness Intravenous contrast material has not been administered. Low dose protocols were performed. One or more of the following dose reduction techniques were used; automated exposure control, adjustment of the mA and/or KV according to patient size, use of iterative reconstruction technique. Findings: Gastric sutures No visualized liver or splenic lesion Absent gallbladder No extrahepatic biliary tract dilatation No pancreatic mass No renal or ureteral calculi, no hydronephrosis Normal appendix No bowel obstruction or diverticulitis Anteverted uterus No bladder mass Intact osseous structures IMPRESSION: No extrahepatic biliary tract dilatation No renal or ureteral calculi, no hydronephrosis Normal appendix No bowel obstruction diverticulitis or free air
--- NOTE | 2025-03-12 11:48 | EDNOTE_ITS ---
<Statement entered by Layla Hernandez MD - 03/12/25 17:46> As co-signing physician, I was present and available for consult prn. I concur with the plan and care as documented by the midlevel provider. ED General RME/HPI General Chief complaint: Abdominal Pain Stated complaint: ABD PAIN X 1 WK, NAUCEOUS, DIZZY, INCREASED HR Time Seen by Provider: 03/12/25 09:14 Arrival date/time: 03/12/25 09:13 CC: Low center abdominal pain HPI ongoing for 5 days no OTC medicines taken denies any nausea vomiting has had bowel movements and is passing gas. No prior history of similar events. Denies any painful urination or bloody urination. Patient states because she has had a gastric bypass she is concerned there is something going on . Patient denies chest pain fever chills shortness of breath or difficulty breathing. RME / HPI RME / HPI narrative: 03/12/25 09:13 39-year-old female with no known medical history presents to the emergency room with a chief complaint of lower suprapubic abdominal pain, nausea, dizziness x 3 days I have greeted and performed a focused initial assessment of this patient. A comprehensive ED assessment and evaluation of the patient, analysis of all test results, and completion of the medical decision making process will be conducted by additional ED providers. Exam: Tenderness under the umbilicus with palpation GCS of 15 alert oriented x 3 Impression: Abdominal pain/UTI/electrolyte imbalance Related Data Home Medications ?Medication ?Instructions ?Recorded ?Confirmed albuterol sulfate 90 mcg/actuation 1 puff inhalation Q 6H PRN 02/06/19 02/06/19 aerosol inhaler Respiratory Distress loratadine 10 mg capsule 10 mg PO QDAY 02/06/1902/06 Previous Rx's ?Medication ?Instructions ?Recorded acetaminophen 500 mg capsule 1,000 mg (2 x 500 mg) PO Q8HR PRN 02/06/19 pain #60 caps acetaminophen 500 mg capsule 1,000 mg (2 x 500 mg) PO Q8HR PRN 09/03/21 pain #60 caps ibuprofen 800 mg tablet 800 mg PO TID PRN pain #30 t abs 09/03/21 promethazine-DM 6.25 mg-15 mg/5 mL 5 ml PO Q6H PRN cou gh #473 mL 09/03/21 oral syrup ondansetron 4 mg disintegrating 4 mg PO Q8H PRN nausea and 04/26/23 tablet vomiting #15 tabs Allergies Allergy/AdvReac Type Severity Reaction Status Date / Time No Known Allergies Allergy Verified 03/12/25 09:16 Review of Systems Review of Systems Narrative Review of Systems: GEN: No fever, no chills, no weight loss EYES: No discharge, no visual changes, no pain HEENT: No ear pain, no congestion, no sore throat PULM: No shortness of breath, no cough, no congestion CV: No chest pain, no dyspnea on exertion, no palpitations GI: No nausea, no vomiting, no diarrhea, + pain, no constipation : No frequency, no urgency, no dysuria MUSC/SKEL: No joint pain, no back pain SKIN: No rash PSYCH: No hallucinations, no depression HEME/LYMPH: No easy bleeding or bruising tendencies NEURO: No weakness, no headache Past Medical History Past Medical History NEUROLOGIC: Negative Neurological Disorders or Seizures CARDIAC: Negative Cardiac Disorders or Congestive Heart Failure RESPIRATORY: Negative Chronic Obstructive Pulmonary Disease (COPD) or Asthma GASTROINTESTINAL: Positive Gall Bladder Disease; Negative Gastrointestinal Disorders, Hepatitis, Colorectal Cancer or Gastroesophageal Reflux Disease GENITOURINARY: Negative Genitourinary Disorders, Renal Disease or Prostate Cancer REPRODUCTIVE: Positive Previous Pregnancies; Negative Breast Cancer or Testicular Cancer MUSCULOSKELETAL: Negative Musculoskeletal Disorders, Bone Cancer or Carpal Tunnel Syndrome ENDOCRINE: Negative Endocrine Disorders, Diabetes Mellitus Type 1 or Diabetes Mellitus Type 2 HEMATOLOGIC: Negative Blood Disorders or Sickle Cell Disease PSYCHO/SOCIAL: Positive Anxiety OTHER HISTORY: Negative Hospitalization, Autoimmune Disease, Down Syndrome, Developmental Delay, Shingles, Falls, Blood Transfusions, Blood Transfusion Reaction, Anesthesia Reactions, Organ Transplant, Chemotherapy, Radiation Therapy, Hyperbaric Therapy, MRSA, VRSA, Vancomycin-Resistant Enterococci, Human Immunodeficiency Virus (HIV), Chicken Pox, Measles, Mumps, Rubella (Bengali Measles), Pertussis, Clostridium Difficile, Breast Cancer, Cervical Cancer, Colorectal Cancer, Lung Cancer, Ovarian Cancer, Prostate Cancer or Testicular Cancer Family History FAMILY HISTORY: Negative Family Psychiatric Problems, Family Respiratory Disorders, Family Cardiac Disorders, Family Gastrointestinal Problems, Family Cancer, Family Surgery or Family Anesthesia Reaction Surgical History SURGICAL: Negative Nephrectomy, Transurethral Resection, Joint Replacement, Amputation, Open Reduction Internal Fixation, Arthroscopy, Neurologic Surgery, Brain Shunt, Mastectomy, Lumpectomy, Hysterectomy, Section, Vasectomy or Organ Transplant Social History SMOKING STATUS: Never smoker ED Exam Narrative Physical exam: [General: Appears not in any acute distress Head normocephalic HEENT: Within acceptable limits Neck is supple nontender Chest equal chest rise nontender to palpation Respiratory: Clear to auscultation no wheezes crackles or rubs CV: Rate rhythm is regular no murmurs rubs or clicks Abdomen soft, with mild tenderness in the suprapubic area, no periumbilical right upper or left upper or lower quadrant tenderness with deep palpation no reflexive guarding or rebound tenderness positive bowel sounds all 4 quadrants Back: No CVA tenderness no spinous process tenderness from cervical spine thoracic and lumbar spine Skin: Intact no petechiae rash induration ulceration or crepitus Extremities: Moving all extremity against resistance cap refill less than 2 seconds neurosensory intact Neuro: Awake alert oriented x3 Glascow coma 15 no focal deficits] Course Course Course Narrative: Patient is afebrile nontoxic-appearing in no acute findings. Patient be discharged with abdominal pain Quality Measures none Orders Category Date Time Status CT abdomen pelvis wo con Stat Exams 03/12/25 11:47 Completed US pelvic complete Stat Exams 03/12/25 09:35 Completed CBC Stat Lab 03/12/25 09:43 Completed CMP [Comprehensive Metabolic Panel] Stat Lab 03/12/25 09:43 Completed HCG Qualitative,Urine Stat Lab 03/12/25 09:45 Completed Lipase Stat Lab 03/12/25 09:43 Completed UA [Urinalysis] Stat Lab 03/12/25 09:45 Completed Urine Culture Stat Lab 03/12/25 09:45 Received Vital Signs Vital signs: Vital Signs Temperature 98.3 F 03/12/25 09:30 Pulse Rate 83 03/12/25 09:30 Respiratory Rate 18 03/12/25 09:30 Blood Pressure 111/69 03/12/25 09:30 Pulse Oximetry (%) 97 03/12/25 09:30 Oxygen Delivery Method Room Air 03/12/25 09:30 Discharge Plan Plan Patient Disposition: HOME (Self Care) Patient condition on transfer: Stable Prescriptions/Referrals Prescriptions/Med Rec: No Action ibuprofen 800 mg tablet 800 mg PO TID PRN (Reason: pain) Qty: 30 0RF acetaminophen 500 mg capsule 1,000 mg PO Q8HR PRN (Reason: pain) Qty: 60 0RF promethazine-DM 6.25-15 mg/5 mL syrup 5 ml PO Q6H PRN (Reason: cough) Qty: 473 0RF albuterol sulfate 90 mcg/actuation Hfa Aerosol Inhaler 1 puff INHALATION Q6H PRN (Reason: Respiratory Distress) loratadine 10 mg Capsule 10 mg PO QDAY acetaminophen 500 mg capsule 1,000 mg PO Q8HR PRN (Reason: pain) Qty: 60 0RF ondansetron 4 mg tablet,disintegrating 4 mg PO Q8H PRN (Reason: nausea and vomiting) Qty: 15 0RF Referrals: Joey ([facility]),SAVANNA Page [Primary Care Provider] - In 1 week Problem List Clinical Impression: Abdominal pain Patient/Caregiver Discharge Instructions Other Activity Instructions:: Take Tylenol for pain if there is worsening of symptoms or you spike a fever with abdominal pain return immediately to the emergency room for reevaluation. Education Materials: Abdominal Pain Print Language: Albanian Stand Alone Forms: [place] Free Classifieds Award Info., Work/School Release, Patient Portal Info Letter RAMOS Supervising Physician RAMOS Supervising Physician: Seth Willis ENP [facility] Clinical Information Provided by: patient Medical Records reviewed [facility] Meds/Rx considered, not ordered None Labs/Rad/Tests considered, not ordered None Chronic Illness/Social Conditions Explain: Gastric bypass cholecystectomy Labs Labs: interpreted by [facility] Lab(s) Interpretation(s): CBC shows no acute leukocytosis anemia thrombocytopenia CMP shows no significant electrolyte imbalances renal impairment transaminitis or T. bili elevation Urine is hazy pH of 7.5. Urine is negative for UTI. Imaging Imaging Interpretation(s): Pelvic ultrasound shows a right ovarian cyst. CT of the abdomen is negative for any acute finding will discharge the patient home
--- NOTE | 2025-03-12 12:10 | PC.NURSE ---
PT TO CT
[2025-03-12 12:29] VITALS: BP 103/67; PULSE 80; RESP 18; TEMP 36.8; O2SAT 100
[2025-03-12 13:49] VITALS: BP 109/72; PULSE 73; RESP 18; TEMP 36.7; O2SAT 99
== END 2025-03-12 14:02 | disposition home or self-care (01) ==
PROVIDERS: Nurse Practitioner Family; Emergency Provider Emergency Medicine; PCP Physician Assistant
DX: R10.84 Generalized abdominal pain (principal); N83.292 Other ovarian cyst, left side
CPT/HCPCS: 36415; 74176; 76856; 80053; 81001; 81025; 83690; 85025; 87086; 99283